=== PATIENT | male | born 1935 | race Caucasian/White ===

== ENCOUNTER 2016-04-17 16:07 | Inpatient (IN) | payer OTHER ==
[~2016-04-17] VITALS: Ht 182.9 cm; Wt 69.9 kg
[~2016-04-17 16:07] MED LIST: ACID1GRA2 PO; ASPI-515 PO; ATOR20TA9 PO; ATOR40TA78 PO; DIPH1TAB6 PO; DULO30CA2 PO; DULO60CA7 PO; Fluconazole PO; INSU100V8; INSU100V8 SQ; LISI-167 PO; METO-93 PO; NICO1PAT4 TD; OMEP-110 PO; ONDA4TAB10 PO; OXYC-223 PO; OXYC1TAB7 PO; PANT40TA5 PO; POLY17PO5 PO; SODI650T PO; SULF1TAB3 PO; TRAM50TA2 PO; TRAZ150T68 PO
[2016-04-17] MEDS ORDERED: SODIUM CHLORIDE 0.9% 1,000ML IVBOLUS ONE (16:30)
[2016-04-17] MEDS ORDERED: DEXTROSE 50%, 50ML SYRINGE IVPush ONE (16:30)
[2016-04-17] MEDS ORDERED: PLEASE ENTER HEIGHT AND WEIGHT MC SCH (17:00)
[2016-04-17 17:06] LABS: ASPARTATE AMINO TRANSFERASE 55 U/L (15-37); BLOOD UREA NITROGEN 63 mg/dL (7-18)
[2016-04-17 17:11] LABS: IS PT STATUS REG ER OR PRE ER? YES
[2016-04-17] MEDS ORDERED: SODIUM CHLORIDE 0.9%, 500ML IVBOLUS ONE (17:30)
[2016-04-17] MEDS: D5%-0.45% NACL 1,000 ML IV SCH (19:00)
[2016-04-17] MEDS ORDERED: DEXTROSE 50%, 50ML SYRINGE ONE (20:21)
[2016-04-17] MEDS ORDERED: TRAZODONE 150MG TABLET PO PRN (20:30)
[2016-04-17] MEDS ORDERED: DEXTROSE 50%, 50ML SYRINGE IVPush PRN (20:30)
[2016-04-17] MEDS ORDERED: GLUCAGON 1 MG IM PRN (20:30)
[2016-04-17] MEDS ORDERED: DEXTROSE 4 GM TAB.CHEW PO PRN (20:30)
[2016-04-17] MEDS ORDERED: PHARMACY MAY ADJ FOR RENAL FX MC PRN (20:30)
[2016-04-17] MEDS ORDERED: D5%-0.45% NACL 1,000 ML IV SCH (20:30)
[2016-04-17] MEDS ORDERED: VANCOMYCIN PER PHARMACY MC PRN (20:30)
[2016-04-17 21:00] VITALS: BP 109/64
[2016-04-17] MEDS ORDERED: BISACODYL 10 MG SUPP PR PRN (21:00)
[2016-04-17] MEDS ORDERED: POLYETHYLENE GLYCOL 17 GM PACKET PO PRN (21:00)
[2016-04-17] MEDS: INSULIN ASPART 100 UNITS/ML, PEN SQ-INSULIN SCH (21:00)
[2016-04-17] MEDS ORDERED: PHARMACOKINETIC MONITORING MC PRN (21:30)
[2016-04-17] MEDS ORDERED: VANCOMYCIN PMX 1GM/200ML 200 ML IV ONE (21:30)
[2016-04-17] MEDS ORDERED: PHARMACOKINETIC CONSULTATION MC ONE (21:30)
[2016-04-17 22:39] LABS: IS PT STATUS REG ER OR PRE ER? NO
[2016-04-17] MEDS: PIPERACILLIN/TAZO/PMX 2.25GM 50 ML IV SCH (22:42)
[2016-04-17] MEDS: SODIUM CHLORIDE FLUSH 10ML SYR IVF SCH (22:42)
[2016-04-17] MEDS: DULOXETINE 30 MG CAPSULE.DR PO SCH (22:43)
[2016-04-17] MEDS: ATORVASTATIN 20 MG TABLET PO SCH (22:43)
[2016-04-17] MEDS: SODIUM BICARBONATE 650 MG TABLET PO SCH (22:43)
[2016-04-17] MEDS: HEPARIN 5,000 UNITS/ML, 1ML SQ SCH (22:44)
[2016-04-18] MEDS: D5%-0.45% NACL 1,000 ML IV SCH (01:40)
[2016-04-18 02:05] VITALS: BP 118/72
[2016-04-18] MEDS: SODIUM CHLORIDE 0.9% 1,000 ML IV SCH ×2 (03:30→15:18)
[2016-04-18 04:09] LABS: BLOOD UREA NITROGEN 58 mg/dL (7-18)
[2016-04-18 04:15] LABS: ASPARTATE AMINO TRANSFERASE 57 U/L (15-37)
[2016-04-18 04:18] LABS: IS PT STATUS REG ER OR PRE ER? NO
[2016-04-18] MEDS: HEPARIN 5,000 UNITS/ML, 1ML SQ SCH ×3 (05:57→23:06)
[2016-04-18] MEDS: PIPERACILLIN/TAZO/PMX 2.25GM 50 ML IV SCH ×3 (05:58→23:06)
[2016-04-18 07:15] VITALS: BP 97/62
[2016-04-18] MEDS: INSULIN ASPART 100 UNITS/ML, PEN SQ-INSULIN SCH ×4 (10:19→21:33)
[2016-04-18] MEDS: ASPIRIN 81 MG TABLET EC PO SCH (10:27)
[2016-04-18] MEDS: SODIUM CHLORIDE FLUSH 10ML SYR IVF SCH ×2 (10:27→21:33)
[2016-04-18] MEDS: SODIUM BICARBONATE 650 MG TABLET PO SCH ×2 (10:27→21:34)
[2016-04-18 12:50] VITALS: BP 120/71
[2016-04-18 19:51] VITALS: BP 102/67
[2016-04-18 19:52] VITALS: BP 91/62
[2016-04-18] MEDS: TRAZODONE 50MG TABLET PO PRN (21:33)
[2016-04-18] MEDS: ATORVASTATIN 20 MG TABLET PO SCH (21:34)
[2016-04-18] MEDS: DULOXETINE 30 MG CAPSULE.DR PO SCH (21:34)
[2016-04-19 01:52] VITALS: BP 110/68
[2016-04-19] MEDS: SODIUM CHLORIDE 0.9% 1,000 ML IV SCH (01:57)
[2016-04-19 05:50] LABS: HEMOGLOBIN 14.2 g/dL (13.7-18.0)
[2016-04-19 06:20] LABS: ASPARTATE AMINO TRANSFERASE 36 U/L (15-37); BLOOD UREA NITROGEN 63 mg/dL (7-18)
[2016-04-19] MEDS: ONDANSETRON 2MG/ML, 2ML IVP PRN (06:20)
[2016-04-19] MEDS: HEPARIN 5,000 UNITS/ML, 1ML SQ SCH ×3 (06:20→23:00)
[2016-04-19] MEDS: PIPERACILLIN/TAZO/PMX 2.25GM 50 ML IV SCH ×3 (06:20→23:51)
[2016-04-19] MEDS ORDERED: VANCOMYCIN 1,200 MG in SODIUM CHLORIDE 0.9% 250 ML IV ONE (07:00)
[2016-04-19 07:32] VITALS: BP 81/54
[2016-04-19] MEDS: INSULIN ASPART 100 UNITS/ML, PEN SQ-INSULIN SCH ×4 (08:15→21:20)
[2016-04-19] MEDS: SODIUM BICARBONATE 8.4% 150 MEQ in DEXTROSE 5% 1,000 ML IV SCH ×2 (08:16→16:26)
[2016-04-19] MEDS: SODIUM CHLORIDE FLUSH 10ML SYR IVF SCH ×2 (10:03→21:18)
[2016-04-19] MEDS: ASPIRIN 81 MG TABLET EC PO SCH (10:03)
[2016-04-19] MEDS: SODIUM BICARBONATE 650 MG TABLET PO SCH ×2 (10:04→21:19)
[2016-04-19] MEDS: CHOLESTYRAMINE 4GM PACKET PO SCH ×2 (12:50→21:18)
[2016-04-19] MEDS: PSYLLIUM PACKET PO SCH (12:50)
[2016-04-19 13:23] VITALS: BP 118/68
[2016-04-19 14:58] LABS: BLOOD UREA NITROGEN 65 mg/dL (7-18)
[2016-04-19 19:52] VITALS: BP 113/68
[2016-04-19] MEDS: DULOXETINE 30 MG CAPSULE.DR PO SCH (21:18)
[2016-04-19] MEDS: ATORVASTATIN 20 MG TABLET PO SCH (21:18)
[2016-04-19] MEDS: TRAZODONE 50MG TABLET PO PRN (21:20)
[2016-04-20 01:47] VITALS: BP 89/57
[2016-04-20] MEDS: SODIUM BICARBONATE 8.4% 150 MEQ in DEXTROSE 5% 1,000 ML IV SCH (01:52)
[2016-04-20 06:48] LABS: BLOOD UREA NITROGEN 53 mg/dL (7-18)
[2016-04-20] MEDS: INSULIN ASPART 100 UNITS/ML, PEN SQ-INSULIN SCH ×4 (07:00→20:09)
[2016-04-20] MEDS: HEPARIN 5,000 UNITS/ML, 1ML SQ SCH ×3 (07:00→23:29)
[2016-04-20 07:51] VITALS: BP 107/66
[2016-04-20] MEDS ORDERED: POTASSIUM CHLORIDE 20 MEQ TAB.ER.PRT PO SCH (08:00)
[2016-04-20] MEDS: CHOLESTYRAMINE 4GM PACKET PO SCH ×2 (08:15→20:11)
[2016-04-20] MEDS: SODIUM BICARBONATE 650 MG TABLET PO SCH ×2 (08:15→20:11)
[2016-04-20] MEDS: PSYLLIUM PACKET PO SCH (08:15)
[2016-04-20] MEDS: ASPIRIN 81 MG TABLET EC PO SCH (08:16)
[2016-04-20] MEDS: PIPERACILLIN/TAZO/PMX 2.25GM 50 ML IV SCH (08:16)
[2016-04-20] MEDS: SODIUM CHLORIDE FLUSH 10ML SYR IVF SCH ×2 (08:16→20:09)
[2016-04-20] MEDS: POTASSIUM CHLORIDE 20 MEQ in SODIUM CHLORIDE 0.9% 1,000 ML IV SCH (08:16)
[2016-04-20] MEDS ORDERED: MAGNESIUM SULFATE PMX 2GM/50ML 50 ML IV ONE (08:30)
[2016-04-20] MEDS ORDERED: PHARMACY MAY ADJ FOR RENAL FX MC PRN (09:30)
[2016-04-20] MEDS ORDERED: MIDAZOLAM 1 MG/ML, 5ML ONE ×2 (10:44)
[2016-04-20] MEDS ORDERED: FENTANYL PF 100 MCG/2ML ONE (10:44)
[2016-04-20] MEDS: HYDROcodone/APAP 5/325 TABLET PO PRN ×2 (12:31→20:10)
[2016-04-20 13:31] VITALS: BP 110/61
[2016-04-20 15:38] LABS: BLOOD UREA NITROGEN 52 mg/dL (7-18)
[2016-04-20] MEDS: ONDANSETRON 2MG/ML, 2ML IVP PRN (16:32)
[2016-04-20 19:47] VITALS: BP 98/64
[2016-04-20] MEDS: ATORVASTATIN 20 MG TABLET PO SCH (20:10)
[2016-04-20] MEDS: POTASSIUM CHLORIDE 20 MEQ TAB.ER.PRT PO SCH (20:11)
[2016-04-20] MEDS: DULOXETINE 30 MG CAPSULE.DR PO SCH (20:11)
[2016-04-20] MEDS: AMOXICILLIN/CLAV 875-125MG TABLET PO SCH (20:12)
[2016-04-20] MEDS: TRAZODONE 50MG TABLET PO PRN (23:29)
[2016-04-21] VITALS (7 sets, daily range): BP systolic 82–138; BP diastolic 50–78
[2016-04-21] MEDS: POTASSIUM CHLORIDE 20 MEQ in SODIUM CHLORIDE 0.9% 1,000 ML IV SCH (01:08)
[2016-04-21] MEDS: HYDROcodone/APAP 5/325 TABLET PO PRN ×3 (05:04→23:35)
[2016-04-21 05:26] LABS: HEMOGLOBIN 13.5 g/dL (13.7-18.0)
[2016-04-21 05:40] LABS: BLOOD UREA NITROGEN 41 mg/dL (7-18)
[2016-04-21] MEDS: ASPIRIN 81 MG TABLET EC PO SCH (08:35)
[2016-04-21] MEDS: PSYLLIUM PACKET PO SCH (08:35)
[2016-04-21] MEDS: AMOXICILLIN/CLAV 875-125MG TABLET PO SCH ×2 (08:35→22:37)
[2016-04-21] MEDS: POTASSIUM CHLORIDE 20 MEQ TAB.ER.PRT PO SCH (08:35)
[2016-04-21] MEDS: CHOLESTYRAMINE 4GM PACKET PO SCH ×2 (08:35→21:00)
[2016-04-21] MEDS: SODIUM BICARBONATE 650 MG TABLET PO SCH ×2 (08:36→22:38)
[2016-04-21] MEDS: HEPARIN 5,000 UNITS/ML, 1ML SQ SCH ×2 (08:36→15:59)
[2016-04-21] MEDS: SODIUM CHLORIDE FLUSH 10ML SYR IVF SCH ×2 (08:36→22:38)
[2016-04-21] MEDS: INSULIN ASPART 100 UNITS/ML, PEN SQ-INSULIN SCH ×4 (08:40→21:00)
[2016-04-21] MEDS: GABAPENTIN 100 MG CAPSULE PO SCH ×3 (13:53→22:38)
[2016-04-21] MEDS: SODIUM CHLORIDE 0.9% 1,000 ML IV SCH ×2 (13:54→22:30)
[2016-04-21] MEDS: INSULIN DETEMIR 100 UNITS/ML, PEN SQ-INSULIN SCH (14:32)
[2016-04-21] MEDS: ONDANSETRON 2MG/ML, 2ML IVP PRN ×2 (18:38→23:35)
[2016-04-21] MEDS: TRAZODONE 50MG TABLET PO PRN (22:38)
[2016-04-21] MEDS: ATORVASTATIN 20 MG TABLET PO SCH (22:38)
[2016-04-21] MEDS: DULOXETINE 30 MG CAPSULE.DR PO SCH (22:38)
[2016-04-22] VITALS (12 sets, daily range): BP systolic 74–135; BP diastolic 52–79
[2016-04-22] MEDS: HEPARIN 5,000 UNITS/ML, 1ML SQ SCH ×3 (02:54→18:05)
[2016-04-22] MEDS: INSULIN DETEMIR 100 UNITS/ML, PEN SQ-INSULIN SCH ×2 (02:56→14:31)
[2016-04-22] MEDS: HYDROcodone/APAP 5/325 TABLET PO PRN ×3 (04:08→18:33)
[2016-04-22 05:30] LABS: HEMOGLOBIN 12.3 g/dL (13.7-18.0)
[2016-04-22 05:51] LABS: BLOOD UREA NITROGEN 36 mg/dL (7-18)
[2016-04-22] MEDS: INSULIN ASPART 100 UNITS/ML, PEN SQ-INSULIN SCH ×4 (07:00→21:30)
[2016-04-22] MEDS: GABAPENTIN 100 MG CAPSULE PO SCH ×3 (08:04→21:26)
[2016-04-22] MEDS: CHOLESTYRAMINE 4GM PACKET PO SCH ×2 (08:04→21:00)
[2016-04-22] MEDS: SODIUM BICARBONATE 650 MG TABLET PO SCH ×2 (08:04→21:26)
[2016-04-22] MEDS: ASPIRIN 81 MG TABLET EC PO SCH (08:04)
[2016-04-22] MEDS: PSYLLIUM PACKET PO SCH (08:04)
[2016-04-22] MEDS: AMOXICILLIN/CLAV 875-125MG TABLET PO SCH ×2 (08:05→21:25)
[2016-04-22] MEDS: SODIUM CHLORIDE FLUSH 10ML SYR IVF SCH ×2 (08:05→21:00)
[2016-04-22] MEDS: SODIUM CHLORIDE 0.9% 1,000 ML IV SCH ×2 (12:13→22:30)
[2016-04-22] MEDS: DULOXETINE 30 MG CAPSULE.DR PO SCH (21:25)
[2016-04-22] MEDS: ATORVASTATIN 20 MG TABLET PO SCH (21:26)
[2016-04-22] MEDS: TRAZODONE 50MG TABLET PO PRN (21:26)
[2016-04-23] VITALS (12 sets, daily range): BP systolic 77–123; BP diastolic 44–76
[2016-04-23] MEDS: HYDROcodone/APAP 5/325 TABLET PO PRN ×3 (00:38→16:16)
[2016-04-23] MEDS: HEPARIN 5,000 UNITS/ML, 1ML SQ SCH ×3 (03:41→18:19)
[2016-04-23] MEDS: INSULIN DETEMIR 100 UNITS/ML, PEN SQ-INSULIN SCH ×2 (03:42→16:16)
[2016-04-23 04:47] LABS: HEMOGLOBIN 12.6 g/dL (13.7-18.0)
[2016-04-23 05:01] LABS: BLOOD UREA NITROGEN 30 mg/dL (7-18)
[2016-04-23] MEDS: INSULIN ASPART 100 UNITS/ML, PEN SQ-INSULIN SCH ×4 (07:00→21:35)
[2016-04-23] MEDS: SODIUM BICARBONATE 650 MG TABLET PO SCH ×2 (08:44→21:34)
[2016-04-23] MEDS: PSYLLIUM PACKET PO SCH (08:44)
[2016-04-23] MEDS: CHOLESTYRAMINE 4GM PACKET PO SCH ×2 (08:44→21:35)
[2016-04-23] MEDS: ASPIRIN 81 MG TABLET EC PO SCH (08:45)
[2016-04-23] MEDS: AMOXICILLIN/CLAV 875-125MG TABLET PO SCH ×2 (08:45→21:33)
[2016-04-23] MEDS: GABAPENTIN 100 MG CAPSULE PO SCH ×3 (08:45→21:34)
[2016-04-23] MEDS: SODIUM CHLORIDE FLUSH 10ML SYR IVF SCH ×2 (08:53→21:00)
[2016-04-23] MEDS: SODIUM CHLORIDE 0.9% 1,000 ML IV SCH (08:53)
[2016-04-23] MEDS: HYDROCORTISONE 100 MG INJ. IVPush SCH ×2 (16:17→21:34)
[2016-04-23] MEDS: SODIUM BICARB 8.4%,50ML SYR. 50 MEQ in SODIUM CHLORIDE 0.45% 1,000 ML IV SCH ×2 (16:17→22:30)
[2016-04-23] MEDS: TRAZODONE 50MG TABLET PO PRN (21:34)
[2016-04-23] MEDS: ATORVASTATIN 20 MG TABLET PO SCH (21:34)
[2016-04-23] MEDS: DULOXETINE 30 MG CAPSULE.DR PO SCH (21:34)
[2016-04-24 02:00] VITALS: BP_SYST 100; BP_SYST 119; BP_SYST 137; BP_DIAS 62; BP_DIAS 66; BP_DIAS 68
[2016-04-24] MEDS ORDERED: OMNIPAQUE 350 MG/ML, 100ML BOTTLE ONE (03:38)
[2016-04-24] MEDS: HYDROcodone/APAP 5/325 TABLET PO PRN ×2 (03:57→16:44)
[2016-04-24] MEDS: HEPARIN 5,000 UNITS/ML, 1ML SQ SCH ×3 (03:57→18:35)
[2016-04-24] MEDS: INSULIN DETEMIR 100 UNITS/ML, PEN SQ-INSULIN SCH (03:58)
[2016-04-24 05:04] LABS: BLOOD UREA NITROGEN 36 mg/dL (7-18)
[2016-04-24] MEDS: SODIUM BICARB 8.4%,50ML SYR. 50 MEQ in SODIUM CHLORIDE 0.45% 1,000 ML IV SCH ×3 (06:41→23:19)
[2016-04-24] MEDS: HYDROCORTISONE 100 MG INJ. IVPush SCH ×3 (06:45→22:09)
[2016-04-24 07:41] VITALS: BP_SYST 108; BP_SYST 109; BP_SYST 138; BP_DIAS 63; BP_DIAS 71; BP_DIAS 79
[2016-04-24] MEDS: PSYLLIUM PACKET PO SCH (08:09)
[2016-04-24] MEDS: GABAPENTIN 100 MG CAPSULE PO SCH ×3 (08:09→22:11)
[2016-04-24] MEDS: CHOLESTYRAMINE 4GM PACKET PO SCH ×2 (08:09→22:10)
[2016-04-24] MEDS: SODIUM BICARBONATE 650 MG TABLET PO SCH ×2 (08:10→22:08)
[2016-04-24] MEDS: INSULIN ASPART 100 UNITS/ML, PEN SQ-INSULIN SCH ×4 (08:10→22:10)
[2016-04-24] MEDS: AMOXICILLIN/CLAV 875-125MG TABLET PO SCH ×2 (08:10→22:08)
[2016-04-24] MEDS: ASPIRIN 81 MG TABLET EC PO SCH (08:10)
[2016-04-24] MEDS: SODIUM CHLORIDE FLUSH 10ML SYR IVF SCH ×2 (08:13→22:09)
[2016-04-24] MEDS: LACTOBACILLUS CHEW TABLET PO SCH ×3 (13:00→22:08)
[2016-04-24 13:43] VITALS: BP_SYST 115; BP_SYST 122; BP_SYST 149; BP_DIAS 58; BP_DIAS 62; BP_DIAS 79
[2016-04-24] MEDS ORDERED: GADOBUTROL 7.5 MMOL/7.5 ML PFS ONE (15:48)
[2016-04-24 19:48] VITALS: BP_SYST 114; BP_SYST 131; BP_SYST 132; BP_DIAS 55; BP_DIAS 64; BP_DIAS 65
[2016-04-24 19:51] VITALS: BP 131/64
[2016-04-24] MEDS: DULOXETINE 30 MG CAPSULE.DR PO SCH (22:08)
[2016-04-24] MEDS: ATORVASTATIN 20 MG TABLET PO SCH (22:08)
[2016-04-24] MEDS: TRAZODONE 50MG TABLET PO PRN (22:21)
[2016-04-25] MEDS: INSULIN DETEMIR 100 UNITS/ML, PEN SQ-INSULIN SCH ×2 (00:30→12:01)
[2016-04-25 01:32] VITALS: BP_SYST 118; BP_SYST 132; BP_SYST 168; BP_DIAS 65; BP_DIAS 66; BP_DIAS 69
[2016-04-25] MEDS: HEPARIN 5,000 UNITS/ML, 1ML SQ SCH ×3 (03:00→17:52)
[2016-04-25] MEDS: HYDROcodone/APAP 5/325 TABLET PO PRN ×2 (03:03→17:09)
[2016-04-25 05:12] LABS: BLOOD UREA NITROGEN 32 mg/dL (7-18)
[2016-04-25] MEDS: HYDROCORTISONE 100 MG INJ. IVPush SCH (05:49)
[2016-04-25] MEDS: SODIUM BICARB 8.4%,50ML SYR. 50 MEQ in SODIUM CHLORIDE 0.45% 1,000 ML IV SCH ×3 (05:49→23:56)
[2016-04-25 06:56] VITALS: BP_SYST 110; BP_SYST 114; BP_SYST 146; BP_DIAS 61; BP_DIAS 62; BP_DIAS 74
[2016-04-25] MEDS: INSULIN ASPART 100 UNITS/ML, PEN SQ-INSULIN SCH ×4 (08:04→21:06)
[2016-04-25] MEDS: SODIUM CHLORIDE FLUSH 10ML SYR IVF SCH ×2 (08:04→21:00)
[2016-04-25] MEDS: ASPIRIN 81 MG TABLET EC PO SCH (08:05)
[2016-04-25] MEDS: PSYLLIUM PACKET PO SCH ×2 (08:05→08:11)
[2016-04-25] MEDS: AMOXICILLIN/CLAV 875-125MG TABLET PO SCH ×2 (08:05→21:07)
[2016-04-25] MEDS: LACTOBACILLUS CHEW TABLET PO SCH ×3 (08:06→21:07)
[2016-04-25] MEDS: GABAPENTIN 100 MG CAPSULE PO SCH ×3 (08:06→21:08)
[2016-04-25] MEDS: SODIUM BICARBONATE 650 MG TABLET PO SCH ×2 (08:08→21:07)
[2016-04-25] MEDS: CHOLESTYRAMINE 4GM PACKET PO SCH ×2 (08:08→21:00)
[2016-04-25] MEDS: FLUDROCORTISONE 0.1 MG TABLET PO SCH (12:01)
[2016-04-25 13:00] VITALS: BP_SYST 108; BP_SYST 118; BP_SYST 137; BP_DIAS 58; BP_DIAS 65; BP_DIAS 68
[2016-04-25 20:00] VITALS: BP_SYST 103; BP_SYST 135; BP_SYST 150; BP_DIAS 61; BP_DIAS 69; BP_DIAS 75
[2016-04-25] MEDS: DULOXETINE 30 MG CAPSULE.DR PO SCH (21:07)
[2016-04-25] MEDS: TRAZODONE 50MG TABLET PO PRN (21:07)
[2016-04-25] MEDS: ATORVASTATIN 20 MG TABLET PO SCH (21:07)
[2016-04-26] MEDS: INSULIN DETEMIR 100 UNITS/ML, PEN SQ-INSULIN SCH ×2 (00:16→12:33)
[2016-04-26] MEDS: HEPARIN 5,000 UNITS/ML, 1ML SQ SCH ×3 (02:06→17:49)
[2016-04-26] MEDS: HYDROcodone/APAP 5/325 TABLET PO PRN ×3 (02:06→17:49)
[2016-04-26 02:54] VITALS: BP_SYST 109; BP_SYST 86; BP_SYST 90; BP_DIAS 45; BP_DIAS 48; BP_DIAS 66
[2016-04-26 03:30] VITALS: BP 138/70
[2016-04-26 04:51] LABS: HEMOGLOBIN 11.4 g/dL (13.7-18.0)
[2016-04-26 05:04] LABS: BLOOD UREA NITROGEN 33 mg/dL (7-18)
[2016-04-26] MEDS: INSULIN ASPART 100 UNITS/ML, PEN SQ-INSULIN SCH ×4 (07:00→21:03)
[2016-04-26] MEDS ORDERED: POTASSIUM CHLORIDE 20 MEQ TAB.ER.PRT PO ONE (07:30)
[2016-04-26 07:49] VITALS: BP_SYST 124; BP_SYST 86; BP_SYST 96; BP_SYST 98; BP_DIAS 45; BP_DIAS 54; BP_DIAS 58; BP_DIAS 59
[2016-04-26] MEDS: SODIUM CHLORIDE FLUSH 10ML SYR IVF SCH ×2 (10:43→21:00)
[2016-04-26] MEDS: AMOXICILLIN/CLAV 875-125MG TABLET PO SCH ×2 (10:44→21:01)
[2016-04-26] MEDS: ASPIRIN 81 MG TABLET EC PO SCH (10:44)
[2016-04-26] MEDS: GABAPENTIN 100 MG CAPSULE PO SCH ×3 (10:44→21:02)
[2016-04-26] MEDS: PSYLLIUM PACKET PO SCH (10:44)
[2016-04-26] MEDS: CHOLESTYRAMINE 4GM PACKET PO SCH ×2 (10:44→21:03)
[2016-04-26] MEDS: SODIUM BICARBONATE 650 MG TABLET PO SCH ×2 (10:44→21:01)
[2016-04-26] MEDS: LACTOBACILLUS CHEW TABLET PO SCH ×3 (10:44→21:02)
[2016-04-26] MEDS: FLUDROCORTISONE 0.1 MG TABLET PO SCH (10:45)
[2016-04-26] MEDS: SODIUM BICARB 8.4%,50ML SYR. 50 MEQ in SODIUM CHLORIDE 0.45% 1,000 ML IV SCH ×2 (12:23→21:40)
[2016-04-26] MEDS: DIPHENOXYLATE/ATROPINE TABLET PO SCH ×3 (13:00→21:02)
[2016-04-26 13:16] VITALS: BP_SYST 101; BP_SYST 104; BP_SYST 120; BP_DIAS 58; BP_DIAS 60; BP_DIAS 61
[2016-04-26 20:30] VITALS: BP_SYST 114; BP_SYST 124; BP_SYST 127; BP_SYST 92; BP_DIAS 59; BP_DIAS 66; BP_DIAS 68
[2016-04-26] MEDS: DULOXETINE 30 MG CAPSULE.DR PO SCH (21:02)
[2016-04-26] MEDS: ATORVASTATIN 20 MG TABLET PO SCH (21:02)
[2016-04-26] MEDS: TRAZODONE 50MG TABLET PO PRN (22:24)
[2016-04-27] MEDS: HYDROcodone/APAP 5/325 TABLET PO PRN ×2 (00:11→22:12)
[2016-04-27] MEDS: INSULIN DETEMIR 100 UNITS/ML, PEN SQ-INSULIN SCH ×2 (00:11→16:19)
[2016-04-27] MEDS: HEPARIN 5,000 UNITS/ML, 1ML SQ SCH ×3 (02:30→22:11)
[2016-04-27 04:10] VITALS: BP_SYST 118; BP_SYST 136; BP_SYST 98; BP_DIAS 57; BP_DIAS 68; BP_DIAS 72
[2016-04-27 04:26] LABS: HEMOGLOBIN 11.6 g/dL (13.7-18.0)
[2016-04-27 04:39] LABS: BLOOD UREA NITROGEN 36 mg/dL (7-18)
[2016-04-27] MEDS: INSULIN ASPART 100 UNITS/ML, PEN SQ-INSULIN SCH ×4 (07:00→22:30)
[2016-04-27 08:44] VITALS: BP 95/60
[2016-04-27] MEDS: CHOLESTYRAMINE 4GM PACKET PO SCH ×2 (09:00→22:13)
[2016-04-27] MEDS: ASPIRIN 81 MG TABLET EC PO SCH (10:11)
[2016-04-27] MEDS: AMOXICILLIN/CLAV 875-125MG TABLET PO SCH (10:11)
[2016-04-27] MEDS: SODIUM CHLORIDE FLUSH 10ML SYR IVF SCH ×2 (10:11→21:00)
[2016-04-27] MEDS: DIPHENOXYLATE/ATROPINE TABLET PO SCH ×3 (10:12→22:12)
[2016-04-27] MEDS: LACTOBACILLUS CHEW TABLET PO SCH ×3 (10:12→22:12)
[2016-04-27] MEDS: GABAPENTIN 100 MG CAPSULE PO SCH ×3 (10:12→22:12)
[2016-04-27] MEDS: FLUDROCORTISONE 0.1 MG TABLET PO SCH (10:12)
[2016-04-27] MEDS: PSYLLIUM PACKET PO SCH (10:12)
[2016-04-27] MEDS: SODIUM BICARBONATE 650 MG TABLET PO SCH ×2 (10:13→22:12)
[2016-04-27 14:19] VITALS: BP 134/66
[2016-04-27] MEDS: SODIUM BICARB 8.4%,50ML SYR. 50 MEQ in SODIUM CHLORIDE 0.45% 1,000 ML IV SCH (16:19)
[2016-04-27 18:39] VITALS: BP 101/63
[2016-04-27] MEDS: ATORVASTATIN 20 MG TABLET PO SCH (22:12)
[2016-04-27] MEDS: DULOXETINE 30 MG CAPSULE.DR PO SCH (22:12)
[2016-04-28] MEDS: SODIUM BICARB 8.4%,50ML SYR. 50 MEQ in SODIUM CHLORIDE 0.45% 1,000 ML IV SCH (01:00)
[2016-04-28] MEDS: DIPHENOXYLATE/ATROPINE TABLET PO SCH ×3 (01:42→07:54)
[2016-04-28] MEDS: INSULIN DETEMIR 100 UNITS/ML, PEN SQ-INSULIN SCH (01:45)
[2016-04-28 01:52] VITALS: BP 129/70
[2016-04-28] MEDS: HEPARIN 5,000 UNITS/ML, 1ML SQ SCH (05:25)
[2016-04-28 05:45] LABS: BLOOD UREA NITROGEN 29 mg/dL (7-18)
[2016-04-28 06:26] VITALS: BP 124/65
[2016-04-28] MEDS: SODIUM CHLORIDE FLUSH 10ML SYR IVF SCH (07:53)
[2016-04-28] MEDS: LACTOBACILLUS CHEW TABLET PO SCH (07:53)
[2016-04-28] MEDS: ASPIRIN 81 MG TABLET EC PO SCH (07:53)
[2016-04-28] MEDS: FLUDROCORTISONE 0.1 MG TABLET PO SCH (07:53)
[2016-04-28] MEDS: PSYLLIUM PACKET PO SCH (07:53)
[2016-04-28] MEDS: SODIUM BICARBONATE 650 MG TABLET PO SCH (07:54)
[2016-04-28] MEDS: GABAPENTIN 100 MG CAPSULE PO SCH (07:54)
[2016-04-28] MEDS: INSULIN ASPART 100 UNITS/ML, PEN SQ-INSULIN SCH (07:57)
[2016-04-28] MEDS: CHOLESTYRAMINE 4GM PACKET PO SCH (07:58)
[2016-04-28] MEDS ORDERED: ALPR-475 PO (09:03)
[2016-04-28] MEDS ORDERED: DIPH1TAB6 PO (09:03)
[2016-04-28] MEDS ORDERED: GABA100C8 PO (09:03)
[2016-04-28] MEDS ORDERED: PSYL3.4P8 PO (09:03)
[2016-04-28] MEDS ORDERED: FLUD0.1T PO (09:03)
[2016-04-28] MEDS ORDERED: MUPI15CR9 TP (09:13)
[2016-04-28] MEDS: HYDROcodone/APAP 5/325 TABLET PO PRN (11:51)
== END 2016-04-28 12:15 | DRG 862 ==
LOC: ED 16:16 → EDIP 19:10 → 4WST 21:03 → 3NW 04-22 18:46
PROVIDERS: ADMIT Internal Medicine
PROC: 0T9B70Z Drainage of Bladder with Drainage Device, Via Natural or Artificial Opening (ICD-10-PCS; principal; 2016-04-18)
PROC: 0BBL3ZX Excision of Left Lung, Percutaneous Approach, Diagnostic (ICD-10-PCS; 2016-04-20)
DX: T81.4XXA Infection following a procedure, initial encounter (principal); N17.0 Acute kidney failure with tubular necrosis; E43 Unspecified severe protein-calorie malnutrition; L03.116 Cellulitis of left lower limb; C34.92 Malignant neoplasm of unspecified part of left bronchus or lung; E87.2 Acidosis; E27.40 Unspecified adrenocortical insufficiency; E87.1 Hypo-osmolality and hyponatremia; K55.9 Vascular disorder of intestine, unspecified; N18.4 Chronic kidney disease, stage 4 (severe); E11.649 Type 2 diabetes mellitus with hypoglycemia without coma; W18.30XA Fall on same level, unspecified, initial encounter; E11.21 Type 2 diabetes mellitus with diabetic nephropathy; E11.22 Type 2 diabetes mellitus with diabetic chronic kidney disease; I12.9 Hypertensive chronic kidney disease with stage 1 through stage 4 chronic kidney disease, or unspecified chronic kidney disease; Z68.21 Body mass index [BMI] 21.0-21.9, adult; I95.1 Orthostatic hypotension; D63.8 Anemia in other chronic diseases classified elsewhere; D75.89 Other specified diseases of blood and blood-forming organs; E11.51 Type 2 diabetes mellitus with diabetic peripheral angiopathy without gangrene; E11.65 Type 2 diabetes mellitus with hyperglycemia; E78.5 Hyperlipidemia, unspecified; E86.0 Dehydration; E86.1 Hypovolemia; E87.6 Hypokalemia; F10.21 Alcohol dependence, in remission; F17.210 Nicotine dependence, cigarettes, uncomplicated; R59.9 Enlarged lymph nodes, unspecified; R91.1 Solitary pulmonary nodule; D72.829 Elevated white blood cell count, unspecified; E11.40 Type 2 diabetes mellitus with diabetic neuropathy, unspecified; G89.29 Other chronic pain; I25.10 Atherosclerotic heart disease of native coronary artery without angina pectoris; J43.9 Emphysema, unspecified; K59.00 Constipation, unspecified; R62.7 Adult failure to thrive; S00.01XA Abrasion of scalp, initial encounter; Y92.009 Unspecified place in unspecified non-institutional (private) residence as the place of occurrence of the external cause; Z63.8 Other specified problems related to primary support group; Z79.4 Long term (current) use of insulin; Z80.3 Family history of malignant neoplasm of breast; Z85.3 Personal history of malignant neoplasm of breast; Z93.2 Ileostomy status; Z95.5 Presence of coronary angioplasty implant and graft; Z90.49 Acquired absence of other specified parts of digestive tract
CPT/HCPCS: 32405; 36415; 70450; 70553; 71010; 71250; 71260; 72125; 74177; 76700; 77012; 78306; 80048; 80053; 80202; 81001; 82533; 82550; 82962; 83735; 84443; 84484; 85025; 85610; 85730; 87324; 88305; 88341; 88342; 93005; 93308; 93321; 93325; 96374; 96376; 99156; 99157; A9585; J1644; J1815; J2250; J2405; J2543; J3010; J3370; J3480; J7070; Q9967; A9503; C9898; G0461; J1720; J3475; J7030; J7050

== ENCOUNTER → 2016-04-29 | Outpatient (CLI) | payer OTHER ==
[~2016-04-29] MED LIST changes: +ALPR-475 PO; +FLUD0.1T PO; +GABA100C8 PO; +MUPI15CR9 TP; +PSYL3.4P8 PO
== END | disposition home or self-care (01) ==
LOC: PETCFH 13:19
PROVIDERS: ATTEND Radiology Radiation Oncology
DX: C34.12 Malignant neoplasm of upper lobe, left bronchus or lung (principal); I10 Essential (primary) hypertension; E87.2 Acidosis; I70.0 Atherosclerosis of aorta; J47.9 Bronchiectasis, uncomplicated; J43.8 Other emphysema; K57.30 Diverticulosis of large intestine without perforation or abscess without bleeding; I65.23 Occlusion and stenosis of bilateral carotid arteries; R91.1 Solitary pulmonary nodule; D64.89 Other specified anemias
CPT/HCPCS: 78815; A9552